=== PATIENT | male | born 1985 | race Caucasian/White ===

== ENCOUNTER → 2017-01-01 22:59 | Emergency (ER) | payer SELFPAY ==
[~2017-01-01 22:59] MED LIST: Aspirin Low Dose CHEW TAB* 81 MG PO ONE
[2017-01-01 23:34] LABS: Hematocrit 49 % (42-52); Hemoglobin 16.3 g/dl (14.0-18.0); Mean Corpuscular HGB Conc 34 g/dl (31-36); Mean Corpuscular Hemoglobin 30 pg (27-31); Mean Corpuscular Volume 90 fL (80-94); Mean Platelet Volume 8 um3 (7.4-10.4); Red Blood Count 5.43 10^6/ul (4.0-5.4); Red Cell Distribution Width 14 % (10.5-15); White Blood Count 21.1 10^3/ul (3.5-10.8)
[2017-01-01 23:36] LABS: Add Diff/Slide Review? Slide Review Added; Comments Flag Yes
[2017-01-01 23:52] LABS: Albumin 4.9 g/dL (3.2-5.2); BUN/Creatinine Ratio 9.6 (8-20); Calcium 10.1 mg/dL (8.6-10.3); EGFR African American 108.6 (>60); EGFR Non-African American 84.4 (>60); Potassium 4.5 mmol/L (3.5-5.0); Total Bilirubin 0.8 mg/dL (0.2-1.0); Total Protein 7.9 g/dL (6.4-8.9)
[2017-01-01 23:53] LABS: Troponin I 0.01 ng/mL (<0.04)
[2017-01-02 01:57] LABS: Hematocrit 49 % (42-52); Hemoglobin 16.3 g/dl (14.0-18.0); Mean Corpuscular HGB Conc 34 g/dl (31-36); Mean Corpuscular Hemoglobin 30 pg (27-31); Mean Corpuscular Volume 90 fL (80-94); Mean Platelet Volume 8 um3 (7.4-10.4); Red Blood Count 5.38 10^6/ul (4.0-5.4); Red Cell Distribution Width 14 % (10.5-15); White Blood Count 19.6 10^3/ul (3.5-10.8)
[2017-01-02 03:58] VITALS: BP 138/79
--- NOTE | 2017-01-02 04:02 | ED ---
Amarjit Staples Rebecca, scribed for Leandro Ibrahimuel on 01/01/17 at 2327 . HPI Chest Pain - HPI Summary HPI Summary: Pt is a 31 y/o M BIBA who presents to ED c/o CP with associated near syncope. Pain began suddenly at 1900 while walking. Pain is diffuse with radiation to the neck and shoulders and characterized as sharp. Currently, pt is not experiencing any pain. Sx aggravated by nothing, alleviated by spontaneous resolution. Additionally c/o dizziness characterized as near syncopal. Previous similar episodes. Reports he walked approximately 20 miles today. - History of Current Complaint Chief Complaint: EDChestPainROMI Time Seen by Provider: 01/01/17 23:08 Hx Obtained From: Patient Onset/Duration: Resolved Time of Onset: 19:00 Timing: Constant Initial Severity: Moderate Current Severity: None Pain Intensity: 0 Pain Scale Used: 0-10 Numeric Chest Pain Location: Diffuse Chest Pain Radiates: Yes Chest Pain Radiates To:: Shoulder, Neck Character: Sharp/Stabbing Aggravating Factor(s): Nothing Alleviating Factor(s): Spontaneous Resolution Associated Signs and Symptoms: Positive: Dizziness - near-syncopal - Allergy/Home Medications Allergies/Adverse Reactions: Allergies Allergy/AdvReac Type Severity Reaction Status Date / Time No Known Allergies Allergy Verified 01/01/17 23:21 PMH/Surg Hx/FS Hx/Imm Hx Endocrine/Hematology History: Denies: Hx Diabetes Cardiovascular History: Denies: Hx Hypertension Neurological History: Reports: Other Neuro Impairments/Disorders - Hx syncopal episodes Psychiatric History: Reports: Hx Substance Abuse - Hx opioid abuse Infectious Disease History: No Infectious Disease History: Denies: Traveled Outside the [place] in Last 30 Days - Family History Known Family History: Positive: Cardiac Disease, Hypertension, Diabetes, Other - TIA - Social History Lives: With Family Hx Substance Use: Yes Substance Use Type: Reports: Heroin Review of Systems Positive: Chest Pain - resolved Positive: Syncope - Dizziness characterized as near syncopal All Other Systems Reviewed And Are Negative: Yes Physical Exam Triage Information Reviewed: Yes Vital Signs On Initial Exam: Initial Vitals Temp Pulse Resp BP Pulse Ox 98.8 F 98 16 138/88 100 01/01/17 23:05 01/01/17 23:05 01/01/17 23:05 01/01/17 23:05 01/01/17 23:05 Vital Signs Reviewed: Yes Appearance: Positive: Well-Appearing, No Pain Distress Skin: Positive: Warm, Skin Color Reflects Adequate Perfusion, Dry Head/Face: Positive: Normal Head/Face Inspection Eyes: Positive: EOMI, SAMIR ENT: Positive: Normal ENT inspection Respiratory/Lung Sounds: Positive: Clear to Auscultation, Breath Sounds Present Cardiovascular: Positive: RRR, Pulses are Symmetrical in both Upper and Lower Extremities Abdomen Description: Positive: Nontender, Soft Bowel Sounds: Positive: Present Musculoskeletal: Positive: Normal, Strength/ROM Intact Neurological: Positive: Normal, Sensory/Motor Intact, Alert, Oriented to Person Place, Time Diagnostics - Vital Signs Vital Signs Temp Pulse Resp BP Pulse Ox 01/01/17 23:14 89 11 100 01/01/17 23:12 142/73 01/01/17 23:05 98.8 F 98 16 138/88 100 - Laboratory Result Diagrams: 01/02/17 01:30 01/01/17 23:10 Lab Statement: Any lab studies that have been ordered have been reviewed, and results considered in the medical decision making process. - Radiology CXR Xray Interpretation: No Acute Changes Radiology Interpretation Completed By: ED Physician - CT Brain CT CT Interpretation: No Acute Changes - See report. CT Interpretation Completed By: Radiologist - EKG 2305 Cardiac Rate: NL - 89 bpm EKG Rhythm: Sinus Rhythm EKG Interpretation: Early repolarization, no acute changes Re-Evaluation - Re-Evaluation First Eval Re-Evaluation Time: 03:46 Change: Improved Comment: Pt is feeling significantly better. Chest Pain Course/Dx - Course Assessment/Plan: Pt came to ED for chest pain and syncopal episode. Labs, cardiac enzymes and CT were done. Revealed results within normal limits. Pt will be D/C to home with a followup with his PCP. Unlikely ACS at present. Dx atypical chest pain. - Diagnoses Provider Diagnoses: Atypical chest pain Discharge - Discharge Plan Condition: Stable Disposition: HOME Patient Education Materials: Chest Pain (ED) Referrals: [facility] – [place] [facility] REFERRAL [Outside] - 3 Days The documentation as recorded by the Amarjit hester Rebecca accurately reflects the service I personally performed and the decisions made by , Jeremy Ibrahim.
--- NOTE | 2017-01-02 08:53 | RAD ---
INDICATION: Right-sided chest pain COMPARISON: None. TECHNIQUE: Single AP portable view of the chest was obtained. FINDINGS: Image quality is compromised due to the relative inferiority of a portable chest x-ray. The heart and mediastinum exhibit normal size and contour. The lungs are grossly clear. There is no evidence of a large pleural effusion. Visualized bones are normal for the patient's age. IMPRESSION: No radiographic evidence for acute cardiopulmonary abnormality on this portable chest x-ray.
--- NOTE | 2017-01-02 11:17 | RAD ---
INDICATION: Chest pain and syncope COMPARISON: None. TECHNIQUE: Contiguous axial sections of the brain were obtained from the skull base to the vertex without contrast. FINDINGS: The ventricles, cisterns and sulci are within normal limits. The andrade-white matter differentiation is adequately maintained and there is no sulcal effacement. No significant focal abnormality or mass effect is present. There is no evidence for intracranial hemorrhage. No significant focal osseous abnormality is present. The visualized portion of the paranasal sinuses and mastoid air cells appear clear. IMPRESSION: Normal CT of the brain.
== END | disposition home or self-care (01) ==
LOC: ED 22:59
DX: R07.89 Other chest pain (principal); R55 Syncope and collapse; F11.10 Opioid abuse, uncomplicated
CPT/HCPCS: 36415; 70450; 71010; 80053; 82550; 82553; 83880; 84484; 85025; 85379; 85610; 85730; 93005; 99284